=== PATIENT | male | born 1980 | race Two or more races ===

== ENCOUNTER 2022-10-18 13:49 | Emergency (ER) | payer OTHER ==
[~2022-10-18] VITALS: Ht 180.3 cm; Wt 90.7 kg
== END 2022-10-18 19:01 | disposition home or self-care (01) ==
LOC: ER 13:49
DX: H60.93 Unspecified otitis externa, bilateral (principal); H61.23 Impacted cerumen, bilateral

== ENCOUNTER → 2023-02-23 | Outpatient (CLI) | payer OTHER | END | disposition home or self-care (01) | LOC: SONOGRAMA 07:49 | PROVIDERS: ATTEND Internal Medicine | DX: R94.5 Abnormal results of liver function studies (principal) ==